=== PATIENT | female | born 1965 | race African-American/Black ===

== ENCOUNTER 2016-09-19 18:10 | Emergency (ER) | payer OTHER ==
[2016-09-19 18:21] VITALS: BP 137/76; PULSE 82; TEMP 98; BMI 35.8
--- NOTE | 2016-09-19 19:37 | PDOC ---
History of Present Illness - General Chief Complaint: Injury Stated Complaint: KNEE INJURY Time Seen by Provider: 09/19/16 18:40 History Source: Patient Exam Limitations: No Limitations - History of Present Illness Initial Comments: 09/19/16 19:32 51 yr female slipped on ice this morning 835am landed on the right side shoulder , hip and knee. no head trauma , no dizzyness. Pt is ambulatory states she has pain to the right knee, shoulder and hip. Pt took tylenol and motrin this afternoon. Past History - Past Medical History Allergies/Adverse Reactions: Allergies Allergy/AdvReac Type Severity Reaction Status Date / Time No Known Allergies Allergy Verified 09/19/16 18:16 Home Medications: Ambulatory Orders Amlodipine Besylate [Norvasc -] 10 mg PO DAILY 09/03/14 Atorvastatin Ca [Lipitor] 20 mg PO HS 09/03/14 Glipizide [Glucotrol -] 10 mg PO BID@0700,1630 09/03/14 Lisinopril [Prinivil -] 2.5 mg PO DAILY 09/03/14 Sitagliptin Phos/Metformin HCl [Janumet 50-1,000 mg Tablet] 1 each PO BID Triamterene/Hydrochlorothiazid [Triamterene-Hctz 37.5-25 mg Tb] 1 each PO DAILY 09/03/14 Naproxen [Naprosyn -] 500 mg PO BID PRN #14 tablet 09/19/16 Diabetes: Yes HTN: Yes Hypercholesterolemia: Yes Other medical history: arithritis - Psycho/Social/Smoking Cessation Hx Anxiety: No Suicidal Ideation: No Smoking History: Never smoked Have you smoked in the past 12 months: No Information on smoking cessation initiated: No Hx Alcohol Use: No Drug/Substance Use Hx: No Substance Use Type: None Trauma Specific PMHX - Complaint Specific PMHX Arthritis: No Back Injury: No Neck Injury: No Hx Sacro Iliac Joint Dysfunction: No Review of Systems - Review of Systems Able to Perform ROS?: Yes Is the patient limited Bengali proficient: No Constitutional: No: Symptoms Reported HEENTM: No: Symptoms Reported Respiratory: No: Symptoms reported, Other ABD/GI: No: Symptoms Reported : No: Symptoms Reported Musculoskeletal: Yes: Symptoms Reported, See HPI *Physical Exam - Vital Signs Last Vital Signs Temp Pulse Resp BP Pulse Ox 98.0 F 82 18 137/76 100 09/19/16 18:16 09/19/16 18:16 09/19/16 18:16 09/19/16 18:16 09/19/16 18:16 - Physical Exam General Appearance: Yes: Nourished, Appropriately Dressed HEENT: positive: EOMI, SAQIB, Normal ENT Inspection, TMs Normal, Pharynx Normal Neck: positive: Supple Respiratory/Chest: positive: Lungs Clear, Normal Breath Sounds Cardiovascular: positive: Regular Rhythm, Regular Rate Extremity: positive: Normal Capillary Refill, Normal Inspection, Tender (right knee, right shoulder, hip, no evidence of trauma, no swelling or bruising, FROM upper right and lower right extremity, tender to touch right lateral knee ) Integumentary: positive: Normal Color, Dry, Warm Neurologic: positive: Fully Oriented, Alert, Normal Mood/Affect, Normal Response , Motor Strength / ED Treatment Course - RADIOLOGY Radiology Studies Ordered: Category Date Time Status HIP & PELVIS-RIGHT [RAD] Stat Radiology 09/19/16 19:01 Ordered KNEE 3 POS-RIGHT [RAD] Stat Radiology 09/19/16 19:01 Ordered SHOULDER-RIGHT [RAD] Stat Radiology 09/19/16 19:01 Ordered Medical Decision Making - Medical Decision Making 09/19/16 19:38 cc: slip and fall injured right side no LOC no head trauma will xray to r/o fracture 09/19/16 19:54 preliminary xrays are negative. I have discussed with pt we will notify her if any changes in the radiologist reading. pt agrees and understands the plan. Pt is ambulatory and comfortable on discharge. 09/20/16 13:35 *DC/Admit/Observation/Transfer Diagnosis at time of Disposition: Contusion Qualifiers: Encounter type: initial encounter Contusion area: shoulder Laterality: right Qualified Code(s): S40.011A - Contusion of right shoulder, initial encounter - Discharge Dispostion Disposition: HOME Condition at time of disposition: Good - Prescriptions Prescriptions: Naproxen [Naprosyn -] 500 mg PO BID PRN #14 tablet PRN Reason: Pain - Referrals Referrals: Kurtis Hollins MD [Primary Care Provider] - - Patient Instructions Additional Instructions: follow with the orthopedist for follow up if symptoms worsen or persist take naprosyn for pain as needed warm showers can help with soreness follow with your doctor on Thursday for follow up - Post Discharge Activity Work/School Note: Back to Work
[2016-09-19] MEDS ORDERED: KETOROLAC TROMETHAMINE 30 MG/1 ML VIAL IM ONE (19:58)
[2016-09-19] MEDS ORDERED: KETOROLAC TROMETHAMINE 30 MG/1 ML VIAL ONE (20:02)
== END 2016-09-19 20:19 | disposition home or self-care (01) ==
LOC: JERFT 18:10 → JER 18:10 → JERFT 20:19
PROC: 3E0233Z Introduction of Anti-inflammatory into Muscle, Percutaneous Approach (ICD-10-PCS; principal; 2016-09-19)
DX: S40.011A Contusion of right shoulder, initial encounter (principal); W00.0XXA Fall on same level due to ice and snow, initial encounter; Y93.01 Activity, walking, marching and hiking; Y92.89 Other specified places as the place of occurrence of the external cause; Y99.8 Other external cause status; I10 Essential (primary) hypertension; E11.9 Type 2 diabetes mellitus without complications; Z79.84 Long term (current) use of oral hypoglycemic drugs; E78.00 Pure hypercholesterolemia, unspecified; M12.9 Arthropathy, unspecified
CPT/HCPCS: 73030-TC-RT; 73523-TC; 73562-TC-RT; 99281-25